=== PATIENT | female | born 1960 | race Caucasian/White ===

== ENCOUNTER 2017-04-03 01:15 | Emergency (ER) | payer SELFPAY ==
--- NOTE | 2017-04-03 02:37 | NUR ---
CALLED X4; NOT IN LOBBY. INFORMED BY ADMITTING "PT LEFT HOURS AGO"
== END 2017-04-03 02:38 | disposition left against medical advice (07) ==
LOC: ER 01:17
DX: Z53.21 Procedure and treatment not carried out due to patient leaving prior to being seen by health care provider (principal)